=== PATIENT | female | born 1990 | race Native Hawaiian/Other Pacific Islander ===

== ENCOUNTER 2018-12-31 20:26 | Emergency (ER) | payer OTHER ==
[~2018-12-31] VITALS: Ht 165.1 cm; Wt 88.5 kg
[2018-12-31 22:53] VITALS: BP 118/69; TEMP 98.5
== END 2018-12-31 22:55 | disposition home or self-care (01) ==
LOC: ED 20:26
DX: G50.0 Trigeminal neuralgia (principal)
CPT/HCPCS: 96372; 99283; J1885; J2930